=== PATIENT | female | born 1950 | race Two or more races ===

== ENCOUNTER 2022-12-20 10:41 | Emergency (ER) | payer OTHER ==
[~2022-12-20] VITALS: Ht 160 cm; Wt 66.7 kg
[2022-12-20] MEDS ORDERED: LEVO-T25 MCG (11:01)
[2022-12-20] MEDS ORDERED: CRESTOR5 MG PO (11:01)
[2022-12-20] MEDS ORDERED: COZAAR50 MG PO (11:01)
[2022-12-20] MEDS ORDERED: HYOSCYAMINE0.125 M2 (11:02)
[2022-12-20] MEDS ORDERED: FISH OIL 1,001000 MG (11:02)
[2022-12-20] MEDS ORDERED: OPTIMAL D31250 MCG PO (11:03)
== END 2022-12-20 15:22 | disposition home or self-care (01) ==
LOC: ER 10:41
DX: K21.9 Gastro-esophageal reflux disease without esophagitis (principal); Z88.2 Allergy status to sulfonamides; I10 Essential (primary) hypertension
CPT/HCPCS: 36415; 96365; 99284; J3490